=== PATIENT | male | born 1960 | race American Indian/Alaskan Native ===

== ENCOUNTER 2017-03-09 14:44 | Emergency (ER) | payer SELFPAY ==
[2017-03-09 14:59] VITALS: RESP 18
--- NOTE | 2017-03-09 16:57 | EDPHY ---
H & P Stated Complaint: Wants R foot checked ;Problems w/"nerves" in RLE x yrs Time Seen by Provider: 03/09/17 16:54 HPI/ROS: HPI: This is a 56-year-old male presents with Chief Complaint: Wants R foot checked ;Problems w/"nerves" in RLE x yrs Location: Right foot, right leg Quality: Nerve problems Duration: Since the for Tuesday of this month Signs and Symptoms: No bleeding, + radiation from right lumbar to right foot, no numbness, no weakness, no tingling, no incontinence, no decreased range of motion, + swelling, + pain Timing: Intermittent Severity: Rpvn-of-njnwsicz Context: Patient has a history of a ruptured Wilks cyst on the right and reports over the last month he has had intermittent pins and needles going down his legs originating in his right lower back. He reports that his right lower leg is slightly swollen and mildly red. He denies any injury/Trauma. No recent long distance travel. Patient is homeless and wears boots. No history of diabetes. No prior history of lower back problems or sciatica. Patient reports that is discomfort and that feels like pins and needles and denies pain to me. He is ambulatory without any deficits. Modifying Factors: None Comment: ROS: see HPI Constitutional: No fever, no chills, no weight loss Eyes: No blurred vision Respiratory: No shortness of breath, no cough Cardiovascular: No chest pain Gastrointestinal: No nausea, no vomiting no diarrhea Genitourinary: No dysuria Extremities: No myalgias Neurologic: No weakness, no numbness Skin: No rashes Hematologic: No bruising, no bleeding MEDICAL/SURGICAL/SOCIAL HISTORY: chronic R leg "nerve" problem, R Wilks's cyst. Does not take any regular medications. Surgical history: Denies Social history: Homeless CONSTITUTIONAL: Untidy malodorous adult white male, awake and alert, no obvious distress HEENT: Atraumatic and normocephalic. NECK: supple, no midline tenderness, flexion 45 degrees, extension 45 degrees, right and left lateral flexion 45 degrees. No meningismus. Cardiovascular: Normal S1/S2, regular rate, regular rhythm, without murmur rub or gallop. PULMONARY/CHEST: Symmetrical and nontender. no crepitus. Clear to auscultation bilaterally. Good air movement. No accessory muscle usage. ABDOMEN: Soft, nondistended, nontender, no ecchymosis. PELVIC: no pain with rocking; bilateral hips flexion 125 degrees, extension 30 degrees, with no pain internal rotation and no pain external rotation. BACK: No midline tenderness, no paraspinous spasm, deep tendon reflexes 2/2, no pain with straight leg raise, good range of motion of flexion, extension, bilateral rotation. EXTREMITIES: 2/2 pulses, right Ankle; Plantar flexion to 50, dorsiflexion to 20. Foot inversion to 35 degree. Anterior talofibular ligament. Calcaneofibular ligament, posterior talofibular ligament., posterior inferior tibiofibular ligament Achilles tendon intact. Right ankle and foot are mildly erythematous and swollen. No palpable cords. No varicose veins. no deformities , no clubbing, no cyanosis, no pitting edema. NEUROLOGICAL: no focal neuro deficits. GCS 15. Light touch sensation intact. SKIN: Warm and dry, no erythema. no rash. Good capillary refill. Source: Patient Exam Limitations: No limitations - Personal History Current Tetanus Diphtheria and Acellular Pertussis (TDAP): Unsure - Medical/Surgical History Hx Asthma: No Hx Chronic Respiratory Disease: No Hx Diabetes: No Hx Cardiac Disease: No Hx Renal Disease: No Hx Cirrhosis: No Hx Alcoholism: No Hx HIV/AIDS: No Hx Splenectomy or Spleen Trauma: No Other PMH: chronic R leg "nerve" problem. R Wilks's cyst. homeless - Social History Smoking Status: Former smoker Constitutional: Initial Vital Signs Temperature (C) 36.8 C 03/09/17 14:50 Heart Rate 91 03/09/17 14:50 Respiratory Rate 18 03/09/17 14:50 Blood Pressure 141/87 H 03/09/17 14:50 O2 Sat (%) 96 03/09/17 14:50 O2 Delivery Mode Room Air Allergies/Adverse Reactions: No Known Allergies Allergy (Verified 03/09/17 14:53) Home Medications: Medication Instructions Recorded NK [No Known Home Meds] 03/09/17 Medical Decision Making - Diagnostics Imaging Results: Imaging Impressions Extremity Venous Study 03/09/17 16:45 Impression: 1. There is no sonographic evidence of deep or superficial vein thrombosis in the right lower extremity. 2. Free fluid in the right calf, which could represent sequela from a prior ruptured Wilks's cyst. Findings were discussed with Gilda Fisher PA-C at 17:25, on 03/09/2017. Foot X-Ray 03/09/17 16:46 Impression: 1. Prominent atherosclerosis. 2. Acute/subacute fracture involving the base of the fifth proximal phalanx. 3. Indeterminate age fracture deformity base of the fifth middle phalanx. Lumbar Spine X-Ray 03/09/17 16:46 Impression: 1. Prominent atherosclerosis. 2. Acute/subacute fracture involving the base of the fifth proximal phalanx. 3. Indeterminate age fracture deformity base of the fifth middle phalanx. Procedures: Procedure: Splint placement. Fourth and 5th phalanx were deepak-taped and orthotic shoe was applied by the emergency room lens coating technician. After application of the splint I returned and re- examined the patient. The splint was adequately immobilizing the joint and distal to the splint the patient's circulation and sensation was intact. ED Course/Re-evaluation: Right lower extremity ultrasound, lumbar sacral x-rays, right foot x-rays ordered No signs of neurovascular compromise/tenting of skin/compartment syndrome/ extremities and joints examined above and below area of concern and are neurovascularly intact. Foot x-ray my read via PAC shows calcifications in the vessels and mild degenerative changes Acute/subacute fracture involving the base of the fifth proximal phalanx. Patient's 4th and 5th toes were deepak taped and placed in orthotic shoe. Lumbar sacral x-ray my read via PAC shows L5-S1 mild degenerative changes. Also noted is moderate stool burden. 1729: Called by radiologist Dr. Mcknight who advised that ultrasound shows no acute deep venous thrombosis does show some mild swelling consistent with ruptured Wilks cyst Differential Diagnosis: Leg swelling including but not limited to DVT, lumbar degenerative disc disease , sciatica. Departure - Departure Disposition: Home, Routine, Self-Care Clinical Impression: Wilks's cyst, ruptured Closed fracture of phalanx of right fifth toe Qualifiers: Encounter type: initial encounter Qualified Code(s): S92.501A - Displaced unspecified fracture of right lesser toe(s), initial encounter for closed fracture Condition: Good Instructions: Toe Fracture (ED) Additional Instructions: Keep your 4th and 5th toe deepak-taped and wear orthotic shoe for the next several weeks until your fracture is healed. Ultrasound today does not show deep venous thrombosis but does show some fluid from your ruptured Wilks cyst. Take ibuprofen 600 mg every 6-8 hours with food as needed for pain and inflammation. Apply ice for 30 minutes at a time; 2-3 times per day for the next 1-2 days. Follow up with Podiatry in 7-10 days at which time they will evaluate and recommend with you if conservative management versus surgery is indicated. Referrals: Antwan Hassan DPM [Doctor of Podiatric Medicine] - As per Instructions
[2017-03-09 18:10] VITALS: BP 123/89; PULSE 76; TEMP 98.4; O2SAT 97
== END 2017-03-09 18:18 | disposition home or self-care (01) ==
DX: S92.511A Displaced fracture of proximal phalanx of right lesser toe(s), initial encounter for closed fracture (principal); M66.0 Rupture of popliteal cyst; Z87.891 Personal history of nicotine dependence; X58.XXXA Exposure to other specified factors, initial encounter

== ENCOUNTER 2017-03-22 14:23 | Emergency (ER) | payer SELFPAY ==
--- NOTE | 2017-03-22 15:09 | EDPHY ---
HPI/HX/ROS/PE/MDM Narrative: CHIEF COMPLAINT: Alcohol intoxication HISTORY OF PRESENT ILLNESS: The patient is a 56 y/o male arriving via EMS for medical clearance due to intoxication. He says he has baseline foot numbness, but is not interested in further evaluation for this. He denies pain or any change in these symptoms. He says, "I would just like to leave." He denies any acute complaints or other medical history. No fever, chills, chest pain, shortness of breath, palpitations, vomiting, diarrhea, urinary complaints, headache, lightheadedness. REVIEW OF SYSTEMS: Aside from elements discussed in the HPI, a comprehensive 10-point review of systems was reviewed and is negative. PAST MEDICAL HISTORY: Chronic right foot numbness, right toe fractures, frostbite SOCIAL HISTORY: Homeless. Alcohol abuse. VITAL SIGNS: Reviewed by me GENERAL: Thin, slightly agitated but easily redirectable. HEENT: Atraumatic. Eyes: No icterus, no injection. Mouth: Moist mucous membranes. No erythema or lesions. Neck: supple with no adenopathy. LUNGS: Clear to auscultation bilaterally, no wheezes, rhonchi or rales. CARDIAC: Regular rate and rhythm, no rubs, murmurs or gallops. ABDOMEN: Soft, nontender, nondistended, bowel sounds normal. BACK: No CVA tenderness. EXTREMITIES: Right foot: Ecchymosis on tip of right second toe, some duskiness on ball of right foot, no lesions or evidence of infection, no swelling. Other extremities: No trauma. No edema. Range of motion is normal throughout. NEURO: Alert and oriented to person, [place]. Ambulatory. SKIN: Warm and dry, no rash. PSYCHIATRIC: Normal mentation, no agitation. Portions of this note were transcribed by a medical chief technician. I personally performed a history, physical exam, medical decision making, and confirmed accuracy of information the transcribed note. ED Course: This is a homeless 56 y/o male who presents with alcohol intoxication. He mentions chronic right foot numbness that may be related to prior frostbite injury and toe fractures. I do not find concerning findings on examination of his foot. He is able to walk unassisted and will be discharged to the [facility] in stable condition. Recommended follow up with PCP. Return precautions given. Patient is on [facility] hold via the police. MDM: Differential diagnoses for the patient's symptom complex was considered including but not limited to the alcohol intoxication, alcohol withdrawal, substance abuse, head injury, infection. General Time Seen by Provider: 03/22/17 15:04 Initial Vital Signs: Initial Vital Signs Temperature (C) 36.6 C 03/22/17 14:33 Heart Rate 82 03/22/17 14:33 Respiratory Rate 18 03/22/17 14:33 Blood Pressure 128/74 H 03/22/17 14:33 O2 Sat (%) 94 03/22/17 14:33 O2 Delivery Mode Room Air Allergies/Adverse Reactions: No Known Allergies Allergy (Verified 03/09/17 14:53) Home Medications: Medication Instructions Recorded NK [No Known Home Meds] 03/09/17 Departure - Departure Disposition: Home, Routine, Self-Care Clinical Impression: Alcoholic intoxication Qualifiers: Complication of substance-induced condition: uncomplicated Qualified Code(s): F10.920 - Alcohol use, unspecified with intoxication, uncomplicated Condition: Good Instructions: Alcohol Intoxication (ED) Additional Instructions: Medically clear for detox. Go directly to the [facility]. Follow up with [facility] to establish care this week. Referrals: [facility] [Outside] - As per Instructions [facility] [Outside] - As per Instructions Report Scribed for: Debbie Ospina Report Scribed by: Jacqueline Rodriguez Date of Report: 03/22/17 Time of Report: 15:07
[2017-03-22 15:33] VITALS: BP 120/78; PULSE 87; RESP 16; TEMP 97.5; O2SAT 96
== END 2017-03-22 15:33 | disposition home or self-care (01) ==
LOC: EDUNIT#
DX: F10.920 Alcohol use, unspecified with intoxication, uncomplicated (principal)

== ENCOUNTER 2018-01-18 11:22 | Inpatient (IN) | payer MEDICAID ==
--- NOTE | 2018-01-18 11:35 | EDPHY ---
H & P Stated Complaint: witnessed 2min sz, no hx per pt, bg 155 per ems Time Seen by Provider: 01/18/18 11:35 - Medical/Surgical History Hx Asthma: No Hx Chronic Respiratory Disease: No Hx Diabetes: No Hx Cardiac Disease: No Hx Renal Disease: No Hx Cirrhosis: No Hx Alcoholism: Yes Hx HIV/AIDS: No Hx Splenectomy or Spleen Trauma: No Other PMH: chronic R leg "nerve" problem. R Wilks's cyst. homeless. ETOH, ETOH seizures - Social History Smoking Status: Former smoker Constitutional: Initial Vital Signs Temperature (C) 35.9 C L 01/18/18 11:28 Heart Rate 101 H 01/18/18 11:28 Respiratory Rate 20 01/18/18 11:28 Blood Pressure 127/80 H 01/18/18 11:28 O2 Sat (%) 91 L 01/18/18 11:28 O2 Delivery Mode Nasal Cannula O2 (L/minute) 3 Allergies/Adverse Reactions: No Known Allergies Allergy (Verified 01/18/18 11:31) Home Medications: Medication Instructions Recorded NK [No Known Home Meds] 01/18/18 Medical Decision Making - Diagnostics Imaging Results: Imaging Impressions Head CT 01/18/18 12:10 Impression: 1. Acute parenchymal hemorrhage left posterior frontal lobe just above the sylvian fissure. 2. Encephalomalacia presumably related to previous trauma both frontal lobes and anterior right temporal lobe stable in appearance. 3. Nondepressed fracture left parietal bone to temporal bone. If symptoms worsen, additional imaging may be necessary. Findings discussed with Jarrett Gambino MD at 14:43 hour, 01/18/2018. Imaging: Discussed imaging studies w/ call or contact centre coach Radiologist ED Course/Re-evaluation: CHIEF COMPLAINT: Alcohol intoxication and seizure HISTORY OF PRESENT ILLNESS: The patient is a chronic alcoholic living on [address]. Patient drinks on a daily basis and obtains whatever alcohol is available. Patient was found by bystanders who called EMS system after witnessed brief seizure. Patient has had multiple ER visits over the last several years for the same complaint. Patient denies any injuries, denies a prior seizure history, denies any recent trauma. Patient denies co-ingestion. Patient denies suicidal or homicidal behavior. REVIEW OF SYSTEMS: A comprehensive 10 system review of systems is otherwise negative aside from elements mentioned in the history of present illness and medical decision making. PHYSICAL EXAM: General Appearance: Alert, well hydrated, appropriate, and non-toxic appearing. Dirty and unkept Head: Atraumatic without scalp tenderness or obvious injury Eyes: Pupils equal, round, reactive to light and accommodation, EOMI, no trauma , no injection. Ears: Clear bilaterally, no perforation, normal landmarks Nose: Atraumatic, no rhinorrhea, clear. Throat: There is no erythema or exudates, no lesions, normal tonsils, mucus membranes moist. Neck: Supple, 2+ carotid upstroke, nontender, no lymphadenopathy. Respiratory: No retractions, no distress, no wheezes, and no accessory muscle use. Lungs are clear to auscultation bilaterally. Cardiovascular: Regular rate and rhythm, no murmurs, rubs, or gallops. Bilateral carotid, radial, dorsalis pedis, and posterior tibial pulses intact. Good capillary refill all extremities. Gastrointestinal: Abdomen is soft, nontender, non-distended, no masses, no rebound, no guarding, no peritoneal signs. Musculoskeletal: Normal active ROM of all extremities, atraumatic. Neurological: Alert, appropriate, and interactive. The patient has normal DTRs and non-focal cranial nerves, motor, sensory, and cerebellar exam. Skin: No rashes, good turgor, no nodules on palpation. PAST MEDICAL HISTORY: Chronic alcoholic PAST SURGICAL HISTORY: None SOCIAL HISTORY: Homeless, not employed, not , polysubstance abuser DIAGNOSTICS/PROCEDURES/CRITICAL CARE TIME: I spent a total of 35 minutes of critical care time including but not limited to obtaining history, performing a physical exam, ordering interventions and the bedside monitoring of those interventions, collecting and interpreting tests and discussion with consultants but not including time spent performing procedures. Study: CT of the head without contrast Indication: Seizure and chronic alcoholic with no seizure history Results: CT scan of the head was obtained. The results of the study are parenchymal hemorrhage, skull fracture. The study was read by the radiologist, Dr. Lee. I viewed the images myself on the PACS system. DIFFERENTIAL DIAGNOSIS: The differential diagnosis for the patient's seizure included but was not limited to electrolyte abnormality, alcohol withdrawal, medication noncompliance, head injury, CAR MECH[employer]IC HELPER structural abnormality, and break through seizure. MEDICAL DECISION MAKING: I serially examined this patient since the patient's arrival here in the emergency department. The patient continues to become more and more sober with each examination. He also becomes more more alert and awake and less postictal. He did have a 2nd brief seizure here and the nurses gave 1 mg of Ativan. So a somewhat sleeping now. I did not witness this 2nd seizure. Reported possible fall yesterday. 14:[address] read shows small bleed. 14:37 Spoke with hospitalist service. Dr. Grier accepts admission for seizure , alcoholism, intracranial bleed. 14:[address] Lee, radiologist. CT head shows acute parenchymal hemorrhage left posterior frontal lobe, nondepressed fracture left parietal bone to temporal bone. 14:[address] Parkinson, neurosurgeon. Plan to administer 1000mg Keppra for repeat seizure prevention. Plan to admit to hospitalist service due to patient's alcoholism and alcohol withdrawal. His bleed likely occurred about 24 hours ago based on history. Trauma surgery and neurosurgery to consult. 14:57 Sang Beckman, Neurosurgery PA, at bedside. 15:30 Dr. Cuba, general surgeon, at bedside. Plan to admit as above. - Data Points Laboratory Results: Laboratory Results 01/18/18 11:37 01/18/18 11:37 01/18/18 01/18/18 01/18/18 11:42 11:37 11:37 WBC RBC Hgb POC Hgb 14.6 gm/dL gm/dL (13.7-17.5) Hct POC Hct 43 % % (40-51) MCV MCH MCHC RDW Plt Count MPV Neut % (Auto) Lymph % (Auto) Power % (Auto) Eos % (Auto) Baso % (Auto) Nucleat RBC Rel Count Absolute Neuts (auto) Absolute Lymphs (auto) Absolute Monos (auto) Absolute Eos (auto) Absolute Basos (auto) Absolute Nucleated RBC Immature Gran % Seg Neutrophils % Band Neutrophils % Lymphocytes % Monocytes % Eosinophils % Basophils % Metamyelocytes % Myelocytes % Promyelocytes % Blast Cells % Immature Gran # Absolute Seg Neuts Absolute Band Neuts Absolute Lymphocytes Absolute Monocytes Absolute Eosinophils Absolute Basophils Absolute Metamyelocyte Absolute Myelocytes Absolute Promyelocytes Absolute Plasma Cells Nucleated RBCs RBC/WBC/PLT Morphology Absolute Blast Cells Plasma Cells % Platelet Estimate PT 13.3 SEC SEC (12.0-15.0) INR 0.99 (0.83-1.16) APTT 28.1 SEC SEC (23.0-38.0) POC Sodium 140 mEq/L mEq/L (135-145) Sodium 140 mEq/L mEq/L (135-145) POC Potassium 3.5 mEq/L mEq/L (3.3-5.0) Potassium 3.9 mEq/L mEq/L (3.3-5.0) POC Chloride 104 mEq/L mEq/L (97-110) Chloride 102 mEq/L mEq/L (97-110) Carbon Dioxide 13 mEq/l L mEq/l (22-31) Anion Gap 25 mEq/L H mEq/L (8-16) POC BUN 9 mg/dL mg/dL (7-23) BUN 10 mg/dL mg/dL (7-23) Creatinine 1.1 mg/dL mg/dL (0.7-1.3) POC Creatinine 1.0 mg/dL mg/dL (0.7-1.3) Estimated GFR > 60 Glucose 135 mg/dL H mg/dL (70-100) POC Glucose 138 mg/dL H mg/dL (70-100) Calcium 9.4 mg/dL mg/dL (8.5-10.4) Ethyl Alcohol < 10 mg/dL mg/dL (0-10) 01/18/18 11:37 WBC 11.05 10^3/uL H 10^3/uL (3.80-9.50) RBC 4.01 10^6/uL L 10^6/uL (4.40-6.38) Hgb 13.3 g/dL L g/dL (13.7-17.5) POC Hgb Hct 40.3 % % (40.0-51.0) POC Hct MCV 100.5 fL H fL (81.5-99.8) MCH 33.2 pg pg (27.9-34.1) MCHC 33.0 g/dL g/dL (32.4-36.7) RDW 12.0 % % (11.5-15.2) Plt Count 247 10^3/uL 10^3/uL (150-400) MPV 10.4 fL fL (8.7-11.7) Neut % (Auto) Not Reported Lymph % (Auto) Not Reported Power % (Auto) Not Reported Eos % (Auto) Not Reported Baso % (Auto) Not Reported Nucleat RBC Rel Count Not Reported Absolute Neuts (auto) Not Reported Absolute Lymphs (auto) Not Reported Absolute Monos (auto) Not Reported Absolute Eos (auto) Not Reported Absolute Basos (auto) Not Reported Absolute Nucleated RBC Not Reported Immature Gran % Not Reported Seg Neutrophils % 93.0 % % Band Neutrophils % 0.0 % % Lymphocytes % 3.0 % % Monocytes % 3.0 % % Eosinophils % 0.0 % % Basophils % 0.0 % % Metamyelocytes % 1.0 % % Myelocytes % 0.0 % % Promyelocytes % 0.0 % % Blast Cells % 0.0 % % Immature Gran # Not Reported Absolute Seg Neuts 10.28 10^/uL H 10^/uL (1.70-6.50) Absolute Band Neuts 0.00 10^3/uL 10^3/uL (0.00-0.70) Absolute Lymphocytes 0.33 10^3/uL L 10^3/uL (1.00-3.00) Absolute Monocytes 0.33 10^3/uL 10^3/uL (0.30-0.80) Absolute Eosinophils 0.00 10^3/uL L 10^3/uL (0.03-0.40) Absolute Basophils 0.00 10^3/uL L 10^3/uL (0.02-0.10) Absolute Metamyelocyte 0.11 10^3/mL H 10^3/mL (0.00-0.00) Absolute Myelocytes 0.00 10^3/mL 10^3/mL (0.00-0.00) Absolute Promyelocytes 0.00 10^3/uL 10^3/uL (0.00-0.00) Absolute Plasma Cells 0.00 10^3/uL 10^3/uL (0.00-0.00) Nucleated RBCs 0 /100 WBC /100 WBC (0-0) RBC/WBC/PLT Morphology NORMAL (NORMAL) Absolute Blast Cells 0.00 10^3/uL 10^3/uL (0.00-0.00) Plasma Cells % 0.0 % % Platelet Estimate ADEQUATE (ADEQ) PT INR APTT POC Sodium Sodium POC Potassium Potassium POC Chloride Chloride Carbon Dioxide Anion Gap POC BUN BUN Creatinine POC Creatinine Estimated GFR Glucose POC Glucose Calcium Ethyl Alcohol Medications Given: Discontinued Medications Levetiracetam (Keppra (Premix)) 100 mls @ 400 mls/hr IV EDNOW ONE Stop: 01/18/18 14:57 Last Admin: 01/18/18 15:02 Dose: 100 mls Lorazepam (Ativan Injection) 2 mg IVP EDNOW ONE Stop: 01/18/18 11:40 Last Admin: 01/18/18 11:41 Dose: 2 mg Ondansetron HCl (Zofran) 4 mg IVP EDNOW ONE Stop: 01/18/18 12:56 Last Admin: 01/18/18 12:56 Dose: 4 mg Point of Care Test Results: Chemistry 01/18/18 11:42 POC Sodium 140 mEq/L mEq/L (135-145) POC Potassium 3.5 mEq/L mEq/L (3.3-5.0) POC Chloride 104 mEq/L mEq/L (97-110) POC BUN 9 mg/dL mg/dL (7-23) POC Creatinine 1.0 mg/dL mg/dL (0.7-1.3) POC Glucose 138 mg/dL H mg/dL (70-100) ISTAT H&H 01/18/18 11:42 POC Hgb 14.6 gm/dL gm/dL (13.7-17.5) POC Hct 43 % % (40-51) Departure - Departure Disposition: [facility] Inpatient Acute Clinical Impression: Seizure, Chronic alcoholism, Intracranial bleed Condition: Fair Report Scribed for: Jarrett Gambino Report Scribed by: Karla Cross Date of Report: 01/18/18 Time of Report: 15:50
[2018-01-18] MEDS ORDERED: LORazepam 2 MG/ML INJ ONE (11:39)
[2018-01-18] MEDS ORDERED: LORazepam 2 MG/ML INJ IVP ONE (11:39)
[2018-01-18 12:20] LABS: PLATELET COUNT 247 10^3/uL (150-400)
[2018-01-18] MEDS ORDERED: ONDANSETRON 4 MG/2 ML VIAL ONE (12:53)
[2018-01-18] MEDS ORDERED: ONDANSETRON 4 MG/2 ML VIAL IVP ONE (12:55)
[2018-01-18] MEDS ORDERED: levETIRAcetam 1000MG/NACL 100 ML IV ONE (14:43)
[2018-01-18 15:16] LABS: INR 0.99 (0.83-1.16); PROTIME(PATIENT) 13.3 SEC (12.0-15.0)
--- NOTE | 2018-01-18 15:21 | SOAPPROG ---
SOAP Progress Note Assessment/Plan: Consult done Seen by Neurosurgery at 1454 in ED room [address] shows skull fracture and IPH CT neck pending Repeat CT head to be done at 2000 Call with any questions or concerns 01/18/18 15:19 Objective: Vital Signs Temp Pulse Resp BP Pulse Ox 37.1 C 124 H 18 150/87 H 91 L 01/18/18 15:18 01/18/18 15:00 01/18/18 15:00 01/18/18 15:00 01/18/18 15:00 PT 13.3 SEC (12.0-15.0) 01/18/18 11:37 INR 0.99 (0.83-1.16) 01/18/18 11:37 ICD10 Worksheet Patient Problems: Problems Problem Status Onset CHI (closed head injury) Acute ICB (intracranial bleed) Acute Skull fracture Acute - ICD10 Problem Qualifiers (1) CHI (closed head injury) (2) Skull fracture (3) ICB (intracranial bleed)
--- NOTE | 2018-01-18 15:36 | PDCONSULT ---
Force Adjustment Supervisor Note: # [id number] Trauma Surgery Consult Dictated S MD Rosa Elena, FACS
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
[2018-01-18] MEDS ORDERED: FLUMAZENIL 0.5 MG/5 ML MDV IVP PRN (17:29)
[2018-01-18] MEDS ORDERED: LORazepam 1 MG TAB PO PRN (17:29)
[2018-01-18] MEDS ORDERED: LORazepam 2 MG/ML INJ IVP PRN (17:29)
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
[2018-01-18] MEDS: NS 1,000 ML IV SCH (17:52)
[2018-01-18] MEDS: THIAMINE HCL 500 MG in NS 100 ML IV SCH (18:04)
[2018-01-18] MEDS: ACETAMINOPHEN 325 MG TAB PO PRN (18:26)
[2018-01-18] MEDS ORDERED: levETIRAcetam 750 MG in NS 100 ML IV SCH (21:00)
[2018-01-19] MEDS: ACETAMINOPHEN 325 MG TAB PO PRN ×3 (01:52→17:30)
[2018-01-19] MEDS: THIAMINE HCL 500 MG in NS 100 ML IV SCH (08:01)
[2018-01-19] MEDS: levETIRAcetam 500 MG TAB PO SCH ×2 (08:01→20:44)
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
--- NOTE | 2018-01-19 13:38 | HOSPPROG ---
Hospitalist Progress Note Assessment/Plan: 57yo homeless M with history of etoh abuse presented after having generalized convulsive seizure. Found to have parenchymal hemorrhage and skull fracture on CT. Plan: #Left intraparenchymal hemorrhage: [id number] with some vasogenic edema but no midline shift. Repeat head CT unchanged. - neurosurgery following - cont Q2H neuro checks - No anticoagulants or antiplatelets #Seizure: Likely precipitated by above and less likely etoh withdrawal. - Continue keppra - Appreciate neurology consult, plan for outpt f/u and cont keppra at discharge #Non-displaced skull fracture: Noted on imaging. CT c-spine without fracture. #EtOH abuse: Drinks about 12 beers/day. No e/o withdrawal but high risk. Suspect baseline cognitive deficit related to chronic etoh use. - CIWA protocol - Thiamine #Metabolic acidosis: Likely hypoperfusion from seizure, improved #VINNY - Cr 1.1 -->2.8 overnight despite IVF's, FeNa 1.8%. UA with 2+ protein - renal u/s without e/o hydro - send AM urine microalb:protein ratio - renal consult if worsening, trend for now #Mildly displaced left 4-6th rib fractures: Old. #Macrocytic anemia: Likely marrow suppression from etoh use. Diet: regular VTE ppx: defer pharm with bleed, SCD's Code: full Dispo: cont inpt, transfer to med/surg, ok with neurosurg Subjective: Pt awake, alert. Denies headache, vision changes, nausea or vomiting. No fevers. No cough, CP or SOB. No significant w/d symptoms. Objective: Vital Signs Temp Pulse Resp BP Pulse Ox 37.0 C 85 16 117/68 97 01/19/18 08:00 01/19/18 12:00 01/19/18 12:00 01/19/18 12:00 01/19/18 12:00 Laboratory Results 01/19/18 04:45 01/19/18 04:45 01/18/18 01/19/18 01/20/18 05:59 05:59 05:59 Intake Total 1520 Balance 1520 PT 13.3 SEC (12.0-15.0) 01/18/18 11:37 INR 0.99 (0.83-1.16) 01/18/18 11:37 - Physical Exam Constitutional: no apparent distress Eyes: PERRL Ears, Nose, Mouth, Throat: moist mucous membranes Cardiovascular: regular rate and rhythym Respiratory: no respiratory distress, clear to auscultation Gastrointestinal: normoactive bowel sounds, soft, non-tender abdomen Skin: warm Musculoskeletal: full muscle strength Neurologic: AAOx3 Psychiatric: poor insight, poor memory ICD10 Worksheet Patient Problems: Problems Problem Status Onset CHI (closed head injury) Acute Chronic alcoholism Acute ICB (intracranial bleed) Acute Intracranial bleed Acute Seizure Acute Skull fracture Acute
[2018-01-19] MEDS ORDERED: PNEUMOCOCCAL 0.5ML VACCINE VIAL IM ONE (17:12)
--- NOTE | 2018-01-19 19:28 | TRAUMAPN ---
Trauma Progress Note Assessment/Plan: s/p seizure and fall with IPH and skull fracture alcohol abuse Old rib fractures Tertiary survey performed and no injuries noted S: Sitting up in bed, reading a book Objective: Vital Signs Temp Pulse Resp BP Pulse Ox 36.6 C 84 16 125/82 H 98 01/19/18 17:12 01/19/18 17:12 01/19/18 17:12 01/19/18 17:12 01/19/18 17:12 Laboratory Results 01/19/18 04:45 01/19/18 04:45 01/18/18 01/19/18 01/20/18 05:59 05:59 05:59 Intake Total 1520 1100 Output Total 200 Balance 1520 900 PT 13.3 SEC (12.0-15.0) 01/18/18 11:37 INR 0.99 (0.83-1.16) 01/18/18 11:37 Physical Exam - Physical Exam General Appearance: WD/WN, alert, no apparent distress EENT: PERRL/EOMI, normal ENT inspection, No scleral icterus (R), No scleral icterus (L), No hearing deficit Neck: full range of motion Respiratory: lungs clear, normal breath sounds Cardiac/Chest: regular rate, rhythm, No edema Abdomen: normal bowel sounds, non-tender, soft Skin: warm/dry Extremities: normal range of motion Neuro/Psych: no motor/sensory deficits
--- NOTE | 2018-01-20 07:48 | NEUROPROG ---
Assessment: Total unit time 15 min. Patient has experienced apparent seizure activity in the setting of intraparenchymal hemorrhage on the left and is neurologically stable. It isn't entirely clear if he has actually had document seizures in the past and he denies awareness of any seizures. In any case, I would recommend continued use of the Keppra as an outpatient once he is discharged and we can certainly see him in follow-up if he is able to come to our clinic. Subjective: The patient reports having soreness in his hips and thighs but denies any significant headache. He says he does not feel confused. Objective: Vital Signs Temp Pulse Resp BP Pulse Ox 37.0 C 88 16 131/71 H 93 01/20/18 03:35 01/20/18 03:35 01/20/18 03:35 01/20/18 03:35 01/20/18 03:35 Laboratory Results 01/20/18 04:14 01/20/18 04:14 01/19/18 01/20/18 01/21/18 05:59 05:59 05:59 Intake Total 1520 2050 Output Total 200 Balance 1520 1850 PT 13.3 SEC (12.0-15.0) 01/18/18 11:37 INR 0.99 (0.83-1.16) 01/18/18 11:37 He is awake and alert and oriented and able to follow commands without any focal deficits. Allergies/Adverse Reactions: No Known Allergies Allergy (Verified 01/18/18 11:31)
--- NOTE | 2018-01-20 07:57 | NEUSURGPN ---
Assessment/Plan: Assessment: 57 yo male that had a seizure and ?fall with a stable ICB on follow up CT and skull fracture noted as well Plan: -seizure with ?fall: CT of the head is stable, CT of the C spine is neg -no further CTs needed -neuro stable - c/o mild headache only. -AAO x 3, GCS 15 -continue with Keppra per neurology -PT/OT/ST - PT recs SNF, OT recs home. Will need CM to work on dispo -D/w Dr Gongora -call NS with any neuro changes, questions, or concerns Subjective: Pt resting in bed, states he just fell asleep. C/o mild headache Objective: Awake and alert - oriented to month but not date, stated year is 2012 rather than 2017 Speech fluent and appropriate CN II-XII grossly intact Motor 5/5 BUE/BLE +LT Urinary Catheter in Place: No - Physician Discussed Patient with : [facility] Physical Exam - Vitals, I&O, Labs I and O 01/19/18 01/20/18 01/21/18 05:59 05:59 05:59 Intake Total 1520 2050 Output Total 200 Balance 1520 1850 Weight 65.77 kg Intake: Oral (ml) 1400 1650 IV Intake (ml) 400 IV Infused (ml) 120 Output: Urine (ml) 200 Toilet 200 Other: Intake Quantity Yes Sufficient Number of Voids Toilet 1 1 1 Number of Stools Toilet 1 2 Vital Signs Temp Pulse Resp BP Pulse Ox 37.0 C 88 16 131/71 H 93 01/20/18 03:35 01/20/18 03:35 01/20/18 03:35 01/20/18 03:35 01/20/18 03:35 Laboratory Results 01/20/18 04:14 01/20/18 04:14 ICD10 Worksheet Patient Problems: Problems Problem Status Onset CHI (closed head injury) Acute Chronic alcoholism Acute ICB (intracranial bleed) Acute Intracranial bleed Acute Seizure Acute Skull fracture Acute
--- NOTE | 2018-01-20 10:18 | PDCONSULT ---
Supply Chain Engineer Note: Assessment/Plan: VINNY: Pt with sudden rise in Cr from 1.1 to 4.2 in two days, has proteinuria on UA as well as hematuria but only 1-3 RBCs, FeNa 1.8%, renal US unrevealing and no evidence of obstruction. His lytes and volume status are fine at this time. Concerning for RPGN, although could have rhabdomyolysis. Rarely Keppra can cause VINNY (interstitial nephritis), although usually I would expect such a reaction to take longer than a day to show up. - No emergent need for HD at this time, although will continue to monitor for HD needs. - Will hold Keppra for now. - Will increase NS. - Will send a full serological workup. - Will repeat UA along with urine PCR. - Will check CK. - Will place on low K diet for now. - Would recommend bladder scan as well as accurate I/Os. - Avoid hypotension and nephrotoxins. - Will continue to monitor. Metabolic acidosis: has improved since presentation, will continue to monitor for now. Thank you for the interesting consult. Nephrology will continue to follow, please call if you have any additional questions or concerns. H & P Stated Complaint: witnessed 2min sz, no hx per pt, bg 155 per ems Time Seen by Provider: 01/18/18 11:35 HPI/ROS: HPI: Mr. Madison is a 57 yo M with h/o alcohol abuse and homelessness who presented after being found having a witness convulsive seizure for two minutes , no h/of seizures per pt. He was found to have a L skull fracture and L sided acute parenchymal hemorrhage. He was loaded with Keppra and given Ativan, has also been getting NS. His Cr was 1.1 on presentation, went up to 2.8 yesterday and today is 4.2. He had a renal US done yesterday that was unremarkable. Pt states that he has been urinating normally, normal volume, no hematuria or dysuria, notes that it has not been regularly measured. He denies any rash or synovitis. He has no swelling in his legs or dyspnea. He has never had renal disease before. His UA showed proteinuria or hematuria, although only 1-3 RBCs. He denies any NSAID use, was not taking any medications prior to hospitalization. He admits to large alcohol use and occasional marijuana use, no other drug use. ROS: positive per HPI, rest of 10-point ROS negative - Medical/Surgical History Hx Asthma: No Hx Chronic Respiratory Disease: No Hx Diabetes: No Hx Cardiac Disease: No Hx Renal Disease: No Hx Cirrhosis: No Hx Alcoholism: Yes Hx HIV/AIDS: No Hx Splenectomy or Spleen Trauma: No Other PMH: chronic R leg "nerve" problem. R Wilks's cyst. homeless. ETOH, ETOH seizures - Family History Significant Family History: No pertinent family hx - Social History Smoking Status: Former smoker Alcohol Use: Heavy Drug Use: Marijuana - Physical Exam Exam: General: alert and oriented, no acute distress Eyes: EOMI, PERRL OP: Clear, MMM Neck: supple, no thyromegaly CV: RRR, no edema BLE Resp: CTA bilat, nonlabored respirations on RA Abd: Soft, NT/ND Neuro: CN II-XII grossly intact, no asterixis Psych: cooperative, appropriate mood and affect Skin: C/D/I, no rash Constitutional: Initial Vital Signs Temperature (C) 35.9 C L 01/18/18 11:28 Heart Rate 101 H 01/18/18 11:28 Respiratory Rate 20 01/18/18 11:28 Blood Pressure 127/80 H 01/18/18 11:28 O2 Sat (%) 91 L 01/18/18 11:28 O2 Delivery Mode Nasal Cannula O2 (L/minute) 3 Allergies/Adverse Reactions: No Known Allergies Allergy (Verified 01/18/18 11:31) Home Medications: Medication Instructions Recorded NK [No Known Home Meds] 01/18/18 Lab and Imaging 01/20/18 04:14 01/20/18 04:14 WBC 8.97 10^3/uL (3.80-9.50) 01/20/18 04:14 RBC 3.93 10^6/uL (4.40-6.38) L 01/20/18 04:14 Hgb 12.9 g/dL (13.7-17.5) L 01/20/18 04:14 POC Hgb 14.6 gm/dL (13.7-17.5) 01/18/18 11:42 Hct 38.5 % (40.0-51.0) L 01/20/18 04:14 POC Hct 43 % (40-51) 01/18/18 11:42 MCV 98.0 fL (81.5-99.8) 01/20/18 04:14 MCH 32.8 pg (27.9-34.1) 01/20/18 04:14 MCHC 33.5 g/dL (32.4-36.7) 01/20/18 04:14 RDW 11.6 % (11.5-15.2) 01/20/18 04:14 Plt Count 182 10^3/uL (150-400) 01/20/18 04:14 MPV 10.4 fL (8.7-11.7) 01/18/18 11:37 Neut % (Auto) Not Reported 01/18/18 11:37 Lymph % (Auto) Not Reported 01/18/18 11:37 [place] % (Auto) Not Reported 01/18/18 11:37 Eos % (Auto) Not Reported 01/18/18 11:37 Baso % (Auto) Not Reported 01/18/18 11:37 Nucleat RBC Rel Count Not Reported 01/18/18 11:37 Absolute Neuts (auto) Not Reported 01/18/18 11:37 Absolute Lymphs (auto) Not Reported 01/18/18 11:37 Absolute Monos (auto) Not Reported 01/18/18 11:37 Absolute Eos (auto) Not Reported 01/18/18 11:37 Absolute Basos (auto) Not Reported 01/18/18 11:37 Absolute Nucleated RBC Not Reported 01/18/18 11:37 Immature Gran % Not Reported 01/18/18 11:37 Seg Neutrophils % 93.0 % 01/18/18 11:37 Band Neutrophils % 0.0 % 01/18/18 11:37 Lymphocytes % 3.0 % 01/18/18 11:37 Monocytes % 3.0 % 01/18/18 11:37 Eosinophils % 0.0 % 01/18/18 11:37 Basophils % 0.0 % 01/18/18 11:37 Metamyelocytes % 1.0 % 01/18/18 11:37 Myelocytes % 0.0 % 01/18/18 11:37 Promyelocytes % 0.0 % 01/18/18 11:37 Blast Cells % 0.0 % 01/18/18 11:37 Immature Gran # Not Reported 01/18/18 11:37 Absolute Seg Neuts 10.28 10^/uL (1.70-6.50) H 01/18/18 11:37 Absolute Band Neuts 0.00 10^3/uL (0.00-0.70) 01/18/18 11:37 Absolute Lymphocytes 0.33 10^3/uL (1.00-3.00) L 01/18/18 11:37 Absolute Monocytes 0.33 10^3/uL (0.30-0.80) 01/18/18 11:37 Absolute Eosinophils 0.00 10^3/uL (0.03-0.40) L 01/18/18 11:37 Absolute Basophils 0.00 10^3/uL (0.02-0.10) L 01/18/18 11:37 Absolute Metamyelocyte 0.11 10^3/mL (0.00-0.00) H 01/18/18 11:37 Absolute Myelocytes 0.00 10^3/mL (0.00-0.00) 01/18/18 11:37 Absolute Promyelocytes 0.00 10^3/uL (0.00-0.00) 01/18/18 11:37 Absolute Plasma Cells 0.00 10^3/uL (0.00-0.00) 01/18/18 11:37 Nucleated RBCs 0 /100 WBC (0-0) 01/18/18 11:37 RBC/WBC/PLT Morphology NORMAL (NORMAL) 01/18/18 11:37 Absolute Blast Cells 0.00 10^3/uL (0.00-0.00) 01/18/18 11:37 Plasma Cells % 0.0 % 01/18/18 11:37 Platelet Estimate ADEQUATE (ADEQ) 01/18/18 11:37 PT 13.3 SEC (12.0-15.0) 01/18/18 11:37 INR 0.99 (0.83-1.16) 01/18/18 11:37 APTT 28.1 SEC (23.0-38.0) 01/18/18 11:37 VBG Lactic Acid 1.1 mmol/L (0.7-2.1) 01/18/18 17:30 POC Sodium 140 mEq/L (135-145) 01/18/18 11:42 Sodium 135 mEq/L (135-145) 01/20/18 04:14 POC Potassium 3.5 mEq/L (3.3-5.0) 01/18/18 11:42 Potassium 4.5 mEq/L (3.3-5.0) 01/20/18 04:14 POC Chloride 104 mEq/L (97-110) 01/18/18 11:42 Chloride 100 mEq/L (97-110) 01/20/18 04:14 Carbon Dioxide 21 mEq/l (22-31) L 01/20/18 04:14 Anion Gap 14 mEq/L (8-16) 01/20/18 04:14 POC BUN 9 mg/dL (7-23) 01/18/18 11:42 BUN 40 mg/dL (7-23) H 01/20/18 04:14 Creatinine 4.2 mg/dL (0.7-1.3) H 01/20/18 04:14 POC Creatinine 1.0 mg/dL (0.7-1.3) 01/18/18 11:42 Estimated GFR 15 01/20/18 04:14 Glucose 78 mg/dL (70-100) 01/20/18 04:14 POC Glucose 138 mg/dL (70-100) H 01/18/18 11:42 Calcium 9.0 mg/dL (8.5-10.4) 01/20/18 04:14 Phosphorus 5.7 mg/dL (2.5-4.5) H 01/20/18 04:14 Albumin 3.8 g/dL (3.5-5.0) 01/20/18 04:14 Urine Color YELLOW 01/19/18 08:15 Urine Appearance HAZY 01/19/18 08:15 Urine pH 5.0 (5.0-7.5) 01/19/18 08:15 Ur Specific [place] 1.008 (1.002-1.030) 01/19/18 08:15 Urine Protein 2+ (NEGATIVE) H 01/19/18 08:15 Urine Ketones NEGATIVE (NEGATIVE) 01/19/18 08:15 Urine Blood 3+ (NEGATIVE) H 01/19/18 08:15 Urine Nitrate NEGATIVE (NEGATIVE) 01/19/18 08:15 Urine Bilirubin NEGATIVE (NEGATIVE) 01/19/18 08:15 Urine Urobilinogen NEGATIVE EU (0.2-1.0) 01/19/18 08:15 Ur Leukocyte Esterase NEGATIVE (NEGATIVE) 01/19/18 08:15 Urine RBC 1-3 /hpf (0-3) 01/19/18 08:15 Urine WBC 1-3 /hpf (0-3) 01/19/18 08:15 Ur Epithelial Cells TRACE /lpf (NONE-1+) 01/19/18 08:15 Urine Bacteria TRACE /hpf (NONE SEEN) H 01/19/18 08:15 Urine Mucus TRACE /lpf (NONE-1+) 01/19/18 08:15 Ur Random Creatinine 53.5 mg/dL 01/19/18 08:15 Ur Random Sodium 48 mEq/L (30-90) 01/19/18 08:15 Urine Glucose NEGATIVE (NEGATIVE) 01/19/18 08:15 Ethyl Alcohol < 10 mg/dL (0-10) 01/18/18 11:37
[2018-01-20] MEDS: THIAMINE HCL 500 MG in NS 100 ML IV SCH (10:27)
--- NOTE | 2018-01-20 10:27 | ASMTCAGE ---
CAGE Do you feel you ought to Answers: No cut down on your drinking or drug use? Do people annoy you by Answers: No criticizing your drinking or drug use? Do you feel guilty about Answers: No your drinking or drug use? 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 Additional Comments Pt may be interested in cutting down on his alcohol use if he has to for the health of his kidneys which there are concerns over. Date Signed: 01/20/2018 10:26 AM Electronically Signed By:Annamaria Daly
[2018-01-20] MEDS: levETIRAcetam 500 MG TAB PO SCH ×2 (10:32→21:23)
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
[2018-01-20 15:54] LABS: CREATINE KINASE 8303 IU/L (0-224)
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
[2018-01-20] MEDS: NS 1,000 ML IV SCH ×4 (18:02→23:41)
[2018-01-21 04:55] LABS: PLATELET COUNT 189 10^3/uL (150-400)
[2018-01-21 05:59] LABS: CREATINE KINASE 9190 IU/L (0-224)
[2018-01-21] MEDS: levETIRAcetam 500 MG TAB PO SCH ×2 (09:26→20:46)
[2018-01-21] MEDS: THIAMINE HCL 100 MG TAB PO SCH (09:26)
[2018-01-21] MEDS: NS 1,000 ML IV SCH ×5 (09:26→20:48)
--- NOTE | 2018-01-21 13:30 | SOAPPROG ---
SOAP Progress Note Assessment/Plan: Assessment/Plan: VINNY: pt with suden rise in Cr from 1.1 to 4.2 in two days, with 0.5g proteinuria , noted to have hematuria but only 1-3 RBCs on UA, FeNa 1.8%, renal US unrevealing and no signs of obstruction. Pt is nonoliguric with great UOP, lytes ok and volume status ok. Noted to have elevated CK at 8K, today up to 9K , likely has ATN due to rhabdomyolysis. Cr is down to 3.3 today with IVFs. - No need for HD. - Will continue NS @ 200ml/hr. - Serological workup pending. - Would continue to monitor CK daily. - Avoid hypotension and nephrotoxins. - Strict I/Os. - Will continue to monitor. Metabolic acidosis: in setting of VINNY, will continue to monitor for now. Subjective: No acute events overnight. Pt is having great UOP, over 3.1L yesterday. He has no swelling in his legs, has no other new complaints today. Objective: Vital Signs Temp Pulse Resp BP Pulse Ox 36.6 C 84 16 154/89 H 92 01/21/18 12:00 01/21/18 12:00 01/21/18 12:00 01/21/18 12:00 01/21/18 12:00 Laboratory Results 01/21/18 04:21 01/21/18 04:21 01/20/18 01/21/18 01/22/18 05:59 05:59 05:59 Intake Total 2050 3650 850 Output Total 200 3125 2180 Balance 1850 525 -1330 PT 13.3 SEC (12.0-15.0) 01/18/18 11:37 INR 0.99 (0.83-1.16) 01/18/18 11:37 General: alert and oriented, no acute distress Eyes; EOMI, PERRL OP: Clear CV: RRR Resp: nonlabored respirations on RA Abd: Soft, NT/ND Ext: no edema Neuro: CN II-XII grossly intact, no asterixis Psych: cooperative, appropriate mood and affect ICD10 Worksheet Patient Problems: Problems Problem Status Onset CHI (closed head injury) Acute Chronic alcoholism Acute ICB (intracranial bleed) Acute Intracranial bleed Acute Seizure Acute Skull fracture Acute
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
[2018-01-22 06:24] LABS: CREATINE KINASE 6591 IU/L (0-224)
[2018-01-22] MEDS: THIAMINE HCL 100 MG TAB PO SCH (09:07)
[2018-01-22] MEDS: levETIRAcetam 500 MG TAB PO SCH ×2 (09:07→20:41)
[2018-01-22] MEDS: NS 1,000 ML IV SCH ×2 (10:01→16:40)
--- NOTE | 2018-01-22 13:34 | SOAPPROG ---
SOAP Progress Note Assessment/Plan: Assessment/Plan: VINNY: pt with suden rise in Cr from 1.1 to 4.2 in two days, with 0.5g proteinuria , noted to have hematuria but only 1-3 RBCs on UA, FeNa 1.8%, renal US unrevealing and no signs of obstruction. Pt is nonoliguric with great UOP, lytes ok and volume status ok. Noted to have elevated CK at 8K, today up to 9K , likely has ATN due to rhabdomyolysis. Cr is down to 1.9 today with IVFs. - No need for HD. - Will continue NS @ 100ml/hr, encouraged good oral fluid intake. - Serological workup pending. - Would continue to monitor CK daily. - Avoid hypotension and nephrotoxins. - Strict I/Os. - Will continue to monitor. Metabolic acidosis: in setting of VINNY, will continue to monitor for now. Subjective: No acute events overnight Pt having large UOP, no swelling in legs. He is breathing comfortably, denies any pain today. He is working with PT. Objective: Vital Signs Temp Pulse Resp BP Pulse Ox 36.7 C 80 16 139/76 H 97 01/22/18 12:00 01/22/18 12:00 01/22/18 12:00 01/22/18 12:00 01/22/18 12:00 Laboratory Results 01/21/18 04:21 01/22/18 04:19 01/21/18 01/22/18 01/23/18 05:59 05:59 05:59 Intake Total 3650 7550 Output Total 3125 6730 1400 Balance 525 820 -1400 PT 13.3 SEC (12.0-15.0) 01/18/18 11:37 INR 0.99 (0.83-1.16) 01/18/18 11:37 General: alert and oriented, no acute distress Eyes: EOMI, PERRL OP: Clear CV: RRR Resp: nonlabored respirations on RA, CTAB Abd: Soft, NT/ND Ext: no edema BLE Neuro; CN II-XII grossly intact, no asterixis Psych; Cooperative ICD10 Worksheet Patient Problems: Problems Problem Status Onset CHI (closed head injury) Acute Chronic alcoholism Acute ICB (intracranial bleed) Acute Intracranial bleed Acute Seizure Acute Skull fracture Acute
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
[2018-01-23] MEDS: NS 1,000 ML IV SCH (01:12)
[2018-01-23 05:14] LABS: CREATINE KINASE 2240 IU/L (0-224)
[2018-01-23 09:09] VITALS: BP 106/64
[2018-01-23] MEDS: levETIRAcetam 500 MG TAB PO SCH (09:21)
[2018-01-23] MEDS: THIAMINE HCL 100 MG TAB PO SCH (09:21)
--- NOTE | 2018-01-23 10:39 | ASMTDCNOTE ---
Case Management Discharge Discharge Order Complete? Answers: Yes Patient to Obtain Answers: Independently Medications Transportation Arranged Answers: Bus Tokens Discharge Comments Notes: Patient discharged to streets, per his choice. Bus pass provided. RX sent to [facility]. Date Signed: 01/23/2018 10:38 AM Electronically Signed By:Reyna Mojica RN
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
[2018-01-24 20:39] LABS: HEPATITIS B CORE AB IGM NEGATIVE (NEGATIVE); HEPATITIS B SURFACE ANTIGEN NEGATIVE (NEGATIVE)
[2018-01-24 20:51] LABS: HEPATITIS C ANTIBODY TOTAL NEGATIVE (NEGATIVE); HIV TYPE 1 AND 2 NEGATIVE (NEGATIVE)
== END 2018-01-23 14:15 | disposition home or self-care (01) | DRG 55 ==
LOC: EDUNIT# → F2N 16:07 → F3N 01-19 17:08
PROVIDERS: ADMIT Internal Medicine; ATTEND Internal Medicine
DX: S06.360A Traumatic hemorrhage of cerebrum, unspecified, without loss of consciousness, initial encounter (principal); S02.0XXA Fracture of vault of skull, initial encounter for closed fracture; W19.XXXA Unspecified fall, initial encounter; N17.0 Acute kidney failure with tubular necrosis; R56.9 Unspecified convulsions; F10.20 Alcohol dependence, uncomplicated; M62.82 Rhabdomyolysis; E87.2 Acidosis; M79.2 Neuralgia and neuritis, unspecified; S22.42XD Multiple fractures of ribs, left side, subsequent encounter for fracture with routine healing; F17.210 Nicotine dependence, cigarettes, uncomplicated; Z59.0 Homelessness; Z23 Encounter for immunization
CPT/HCPCS: 82435-PO; 82565-PO; 82947-PO; 83516-90; 83520-90; 84132-PO; 84295-PO; 84520-PO; 85014-PO; 86334-90; 86705-90; 92507-GN; 92523-GN; 96374; 97112-GP; 97116-GP; 97161-GP; 97166-GO; 97530-GP; 97535-GO; G0008; G0009; G0472; G0480; J1953; J2060; J2405; J3411

== ENCOUNTER 2018-02-04 13:03 | Emergency (ER) | payer MEDICAID ==
[2018-02-04] MEDS ORDERED: diphenhydrAMINE 25 MG CAP PO ONE (13:28)
[2018-02-04] MEDS ORDERED: predniSONE 20 MG TAB PO ONE (13:28)
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
[2018-02-04] MEDS ORDERED: CETIRIZINE 10 MG TAB PO ONE (13:43)
[2018-02-04 14:00] VITALS: BP 128/74
== END 2018-02-04 14:01 | disposition home or self-care (01) ==
LOC: EDUNIT#
DX: T63.441A Toxic effect of venom of bees, accidental (unintentional), initial encounter (principal); Z91.030 Bee allergy status
CPT/HCPCS: J7512

== ENCOUNTER 2018-05-29 08:19 | Inpatient (IN) | payer MEDICAID ==
[2018-05-29 08:48] LABS: PLATELET COUNT 221 10^3/uL (150-400)
[2018-05-29] MEDS ORDERED: LORazepam 2 MG/ML INJ ONE (08:54)
[2018-05-29] MEDS ORDERED: levETIRAcetam 500MG/NACL 100 ML IV ONE (08:59)
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
[2018-05-29] MEDS ORDERED: LORazepam 2 MG/ML INJ IVP ONE (09:06)
[2018-05-29] MEDS ORDERED: IOHEXOL 300 mgI/ML (OMNIPAQUE) 150 ML BTL IV ONE (10:46)
--- NOTE | 2018-05-29 12:34 | GCON ---
[f rep st] CONSULTATION DATE OF CONSULTATION: 05/29/2018 TIME OF CONSULTATION: 1030 in the emergency room. HOSPITAL COURSE/HISTORY/MAJOR MEDICAL FINDINGS: The patient is a 57-year-old gentleman who was found down by police, EMS and brought into the emergency room. He does have a history of seizure disorder. There was some question about him having head trauma. He underwent a head CT, which demonstrated an epidural hematoma and Neurosurgery was consulted. He is also complaining of some right shoulder and right biceps pain, and with weakness. He states that this started spontaneously last night. He does not recall any recent falls or head trauma. He denies any neck pain. He denies any numbness, tingling, pain, or weakness anywhere else in his body. The patient does have a history known to [facility] for alcohol abuse, as well as a recent intraparenchymal hemorrhage approximately 5 months ago. PAST MEDICAL HISTORY: Per the patient, he has a seizure disorder. He is currently not taking any medications. He has had a history of a right Wilks cyst and chronic pain going down his right leg. SURGICAL HISTORY: Patient denies any past surgical history. SOCIAL HISTORY: The patient is homeless. He does have a history of EtOH abuse. He is a former smoker. He drinks several 6-packs a day. FAMILY HISTORY: Patient states that he was adopted. HOME MEDICATIONS: None. ALLERGIES: No known drug allergies. PHYSICAL EXAM: VITAL SIGNS: Temperature 37.2, heart rate is 88, respiratory rate is 20, BP is 162/90, and he is 96% on room air. GENERAL: The patient is in no acute distress. He is alert and oriented x3, answers all questions appropriately, and his affect is appropriate for the given situation. NEUROLOGIC: Cranial nerves 2-12 are grossly intact. EOMI and PERRLA. 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 NEURO: In his left deltoid and biceps, he is 5/5 in his right deltoid and biceps. He is a 3+/5. He has a 5/5 in his lower extremities, including his iliopsoas, hamstrings, quadriceps, plantar flexion, dorsiflexion, EHL, and those are equal. Sensation is intact in bilateral upper and bilateral lower extremities. Negative clonus. Negative Babinski bilaterally. Negative Garcia's. He does have 3+ brachioradialis reflex on the right. DIAGNOSTIC REVIEW: CT scan demonstrated acute left frontal epidural hematoma with skull fracture and acute left frontal intraparenchymal hemorrhage, cerebral vascular arthrosclerosis. There is no midline shift or herniation, and there is atrophy of old bilateral frontal and right temporal cortical encephalomalacia. DISCUSSION AND DECISION-MAKING: The patient is a 57-year-old gentleman with a known seizure disorder who was brought into the emergency room and a head CT demonstrated an acute left frontal epidural hematoma with skull fracture. The patient is currently neurologically intact other than some deltoid and biceps weakness. He is denying any neck pain, but given his unknown mechanism, the patient has been placed in a cervical collar. There has been a cervical CT that has been ordered to evaluate his neck. The patient was also given some Keppra in the emergency room given his seizures. At this point in time given is epidural hematoma, we will go ahead and we will repeat his head CT in approximately 4 hours to ensure no expansion of the epidural hematoma. The patient should be admitted to the ICU for q.1 hour neurologic checks and monitor closely. This was discussed in detail with the patient the importance of his staying given the risk of that enlarging head bleed. The patient was also seen by Dr. Hong and myself in conjunction in the emergency room. We will continue to follow up with the results of his cervical scan. If the patient develops any new or worsening symptoms or any change in neurologic or motor exam, please notify Neurosurgery immediately. /[id number]/MODL MTDD
[2018-05-29] MEDS ORDERED: hydrALAZINE 20 MG/ML VIAL IVP PRN (13:22)
[2018-05-29] MEDS ORDERED: fentaNYL 100 MCG/2 ML INJ IVP PRN (14:22)
[2018-05-29] MEDS ORDERED: FLUMAZENIL 0.5 MG/5 ML MDV IVP PRN (14:30)
[2018-05-29] MEDS ORDERED: DEXMEDETOMIDINE HCL 400 MCG in NS 100 ML IV SCH (14:30)
[2018-05-29] MEDS ORDERED: NS 500 ML IV PRN (14:30)
[2018-05-29] MEDS ORDERED: HYDROmorphONE/DILAUDID 1 MG/ML INJ IVP PRN (14:33)
[2018-05-29] MEDS ORDERED: ONDANSETRON 4 MG/2 ML VIAL IVP PRN (14:33)
--- NOTE | 2018-05-29 14:36 | ASMTLACE ---
RICKEY Acuity / Level of Answers: Yes Care: Did the patient have an inpatient admission? Comorbidities - select Answers: Cerebrovascular disease all that apply (CVA, TIA, aneurysms, vasc ular dementia) History of falls Opioid dependence / Chronic pain Other Notes: seizure disorder, Wilks 's cyst and chronic pain down right leg # of Emergency department Answers: 3-4 visits in the last 6 months Social determinants Answers: History of substance abuse (ETOH, street drugs, prescription drugs, etc.) Homelessness (street, [facility]) Lack of community resources and/or lack of social support (no pcp, lives alone, transportation, sravan d) Score: 25 Date Signed: 05/29/2018 02:36 PM Electronically Signed By:Jacqui Fraser RN
[2018-05-29] MEDS ORDERED: D5W 1/2 NS W/ 20 KCl/L 1,000 ML IV SCH (14:45)
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
[2018-05-29] MEDS: THIAMINE HCL 500 MG in NS 100 ML IV SCH (16:06)
--- NOTE | 2018-05-29 17:16 | PDMN ---
Medical Necessity Medical necessity: [facility] M78 Traumatic Brain Injury, Nonsurgical Treatment, 2 days : 57 yo homeless pt found down w/ no recollection of trauma. Brought in via EMT and imaging/assessment reveals L frontal epidural hematoma w/ skull fx and L frontal intraparenchymal hemorrhage, multiple rib fractures and pulmonary contusion. Pt has hx ETOH abuse w/ severe w/d w/ seizures. Admit IP status to SDU for ongoing neuro monitoring q1 hour, repeat scans and tx of the above.
[2018-05-29] MEDS: LORazepam 2 MG/ML INJ IVP PRN ×2 (17:57→22:35)
[2018-05-29] MEDS: FAMOTIDINE 20 MG TAB PO SCH (19:56)
[2018-05-29] MEDS: levETIRAcetam 750 MG in NS 100 ML IV SCH (19:56)
[2018-05-29] MEDS: BACITRACIN ZINC 0.5 OZ OINTTUBE TP SCH (19:56)
--- NOTE | 2018-05-29 20:54 | SOAPPROG ---
SOAP Progress Note Assessment/Plan: Assessment: HOME WITH 57-YEAR-OLD MALE FOUND DOWN SUSTAINING A HEAD INJURY WITH A SKULL FRACTURE AND A SMALL EPIDURAL HEMATOMA ADMIT FOR OBSERVATION NEUROSURGERY CONSULTATION. HE ALSO HAS A RIGHT 3RD AND 4TH RIB FRACTURE AND A POSTERIOR SCALP LACERATION IS SEIZURE AT THE SCENE AND HAS A HISTORY OF SEIZURES AND ALCOHOL PROBLEMS HEENT SMALL POSTERIOR LACERATION, PERRLA, TMS INTACT, OCCLUSION NORMAL NECK SUPPLE NONTENDER FULL RANGE OF MOTION CHEST CLEAR AND SYMMETRIC WITH SOME DISCOMFORT AND OVER THE RIGHT UPPER RIBS COR REGULAR RHYTHM ABDOMEN SOFT NONTENDER EXTREMITIES FULL RANGE OF MOTION FULL PULSES IMPRESSION CHRONIC ALCOHOL ABUSE, HOMELESSNESS, CLOSED HEAD INJURY WITH SKULL FRACTURE AND EPIDURAL HEMATOMA, RIGHT RIB FRACTURES Plan: ADMIT FOR OPS, NEUROSURGERY CONSULTATION, HALIE PROTOCOL 05/29/18 20:51 Objective: Vital Signs Temp Pulse Resp BP Pulse Ox 37.3 C 95 23 H 127/68 H 94 05/29/18 19:00 05/29/18 20:00 05/29/18 20:00 05/29/18 20:00 05/29/18 20:00 05/28/18 05/29/18 05/30/18 05:59 05:59 05:59 Intake Total 1873 Output Total 800 Balance 1073 ICD10 Worksheet Patient Problems: Problems Problem Status Onset Epidural hematoma Acute Intracranial bleed Acute Scalp laceration Acute Seizure Acute Skull fracture Acute CHI (closed head injury) Acute Chronic alcoholism Acute ICB (intracranial bleed) Acute
--- NOTE | 2018-05-29 20:59 | GHP ---
[f rep st] PREOP HISTORY AND PHYSICAL DATE OF ADMISSION: 05/29/2018 The patient is a 57-year-old male who is admitted at this time after being found down sustaining a he ad injury with a possible skull fracture and epidural hematoma. He is presently conscious and alert with a GCS of 15. He has some possibly old compression fractures of T4 and T8 and some acute right r ib fractures of 3 and 4. Has a small acute left frontal epidural. Cervical spine reveals no evidence of any acute fractures or problems. He is admitted at this time for observation, neurosurgery consu ltation and pain control. Risks and options have been fully discussed and he understands and wished to proceed. The patient is ordinarily homeless. ALLERGIES: None. MEDICATIONS: Keppra, but he is not compliant. REVIEW OF SYSTEMS: Complete review of systems is negative except as related to the HPI. He does hav e a history of seizures. He has had a previous brain injury with craniotomy. He does use alcohol ex cessively. He has some chronic right leg pain and a history of a Wilks's cyst. SOCIAL HISTORY: He is an ex smoker, he is a heavy drinker and he is homeless. PRESENT MEDICATIONS: Keppra, an EpiPen kit, prednisone, thiamine, Tylenol. PHYSICAL EXAMINATION: GENERAL: An alert, oriented, 57-year-old male in no acute distress. HEAD AND NECK: Reveals a short posterior occipital laceration and a forehead abrasion with some mild swelling. He is PERRLA. His EOMs are intact. There are no oral lesions and occlusion is normal. NECK: Sup ple, nontender with full range of motion. CHEST: Clear and symmetric. He does have some tenderness in his right posterior upper ribs. CARDIAC: Regular rhythm without murmurs. ABDOMEN: Soft and nont jesús without masses, organomegaly or hernias. BACK: Nontender with no midline step-offs. He does h ave some swelling over his right periscapular area. EXTREMITIES: Reveal full range of motion, full p ulses. NEUROLOGIC: Reveals that he is alert and oriented x3. He has symmetrical motor function and s ensory exam. His cranial nerves are intact. PSYCH: Reveals him to be alert, cooperative and oriente d. IMPRESSION: 1. Closed head injury with epidural and possible skull fracture. 2. Multiple right rib fractures. 3. Alcohol abuse. PLAN: Admit for observation, neurosurgery consultation. Risks and options have been fully discussed and he wishes to proceed. /[id number]/MODL
[2018-05-30 05:54] LABS: INR 1.07 (0.83-1.16); PROTIME(PATIENT) 14.1 SEC (12.0-15.0)
[2018-05-30] MEDS: LORazepam 2 MG/ML INJ IVP PRN (05:59)
[2018-05-30 06:00] LABS: PLATELET COUNT 171 10^3/uL (150-400)
--- NOTE | 2018-05-30 08:18 | TRAUMAPN ---
Trauma Progress Note Assessment/Plan: 57yo M admitted with L frontal epidural hematoma, skull fracture and R rib fractures 3,4. Unknown mechanism of injury, likely fall. H/o seizures, homelessness and ETOH abuse. Repeat CXR this am - stable rib fracture, no pneumothorax. Tertiary survey negative for new injuries. NSG following - stable. Will F/u with Dr. Hong in 4 week. Keppra until outpatient f/u with Neurology per NSG Dispo: transfer to floor if cleared by NSG. Seen with Dr. Gray. S: patient reports mentating clearly this morning. no headache. no chest wall pain. no new injuries. O: General: Lying in bed, comfortable, no acute distress HENT: Normocephalic, frontal scalp abrasion, no gross hearing deficits, mucous membranes moist, pupils equal and round Lungs: Clear to auscultation bilaterally, No increased work of breathing. No chest wall ecchymosis. Cardiac: Regular rate, no peripheral edema Abdomen: Bowel sounds present, soft and non tender Skin: Warm and dry. Old healing abrasions of bilateral knees Psych: Mood and affect normal Neuro: Cranial nerves 2-12 grossly intact. No tremor Objective: Vital Signs Temp Pulse Resp BP Pulse Ox 37.3 C 88 20 122/70 H 94 05/29/18 19:00 05/30/18 08:00 05/30/18 08:00 05/30/18 08:00 05/30/18 08:00 Laboratory Results 05/30/18 05:25 05/30/18 05:25 05/29/18 05/30/18 05/31/18 05:59 05:59 05:59 Intake Total 3569 Output Total 1650 Balance 1919 PT 14.1 SEC (12.0-15.0) 05/30/18 05:25 INR 1.07 (0.83-1.16) 05/30/18 05:25
[2018-05-30] MEDS: THIAMINE HCL 500 MG in NS 100 ML IV SCH (08:36)
[2018-05-30] MEDS: BACITRACIN ZINC 0.5 OZ OINTTUBE TP SCH ×2 (08:38→22:10)
--- NOTE | 2018-05-30 09:20 | PDINTPN ---
Accounting Manager Progress Note Assessment/Plan: Assessment/plan: * Status post fall with trauma * Left frontal epidural hematoma and left frontal intraparenchymal hemorrhage * Multiple rib fractures on the right-Pain well controlled * Pulmonary contusion-stable * Seizure-no further seizures -continue Keppra * History of alcoholic seizures * Alcoholism-watch for DTs * Homelessness * Disposition-okay for floor Subjective: Sitting up in chair eating breakfast. Comfortable. Pain well controlled. Objective: Vital Signs Temp Pulse Resp BP Pulse Ox 37.3 C 88 20 122/70 H 94 05/29/18 19:00 05/30/18 08:00 05/30/18 08:00 05/30/18 08:00 05/30/18 08:00 Laboratory Results 05/30/18 05:25 05/30/18 05:25 05/29/18 05/30/18 05/31/18 05:59 05:59 05:59 Intake Total 3569 Output Total 1650 Balance 1919 PT 14.1 SEC (12.0-15.0) 05/30/18 05:25 INR 1.07 (0.83-1.16) 05/30/18 05:25 Chest [id number] by myself. Right 3rd rib fractures present, but unchanged. Otherwise clear. - Time Spent With Patient Time Spent With Patient: 35 min of time spent with patient, over 1/2 involved with coordination of care counseling. Case discussed with nursing Physical Exam - Physical Exam General Appearance: alert, no apparent distress EENT: PERRL/EOMI Neck: non-tender, full range of motion, supple, normal inspection Respiratory: chest non-tender, lungs clear, normal breath sounds Cardiac/Chest: normal peripheral pulses, regular rate, rhythm Peripheral Pulses: 2+: carotid (R), carotid (L), femoral (R), femoral (L), dorsalis-pedis (R), dorsalis-pedis (L) Abdomen: normal bowel sounds, non-tender, soft Male Genitalia: deferred Rectal: deferred Skin: normal color, warm/dry Extremities: normal range of motion, non-tender, normal inspection, normal capillary refill Neuro/Psych: alert, normal mood/affect, oriented x 3 ICD10 Worksheet Patient Problems: Problems Problem Status Onset Epidural hematoma Acute Intracranial bleed Acute Scalp laceration Acute Seizure Acute Skull fracture Acute CHI (closed head injury) Acute Chronic alcoholism Acute ICB (intracranial bleed) Acute
--- NOTE | 2018-05-30 09:29 | NEUSURGPN ---
Assessment/Plan: 57 yo male with left frontal epidural hematoma. CT C-spine: no fracture Repeat head CT: stable - neuro stable - no further repeat head CT, unless clinically declines - PT/OT - stable from neurosurgery standpoint for discharge - will sign off, FU in 4 weeks as outpatient with Dr. Hong Discussed with trauma. Subjective: No headache, nausea, vomiting. Objective: Awake. Alert. PERRL. EOMI Facial expression symmetrical Tongue in midline Speech fluent Muscle strength full at 5/5 - Physician Discussed Patient with Dr.: Hong Neurosurgery Physical Exam - Vitals, I&O, Labs I and O 05/29/18 05/30/18 05/31/18 05:59 05:59 05:59 Intake Total 3569 Output Total 1650 Balance 1919 Intake: Oral (ml) 950 IV Intake (ml) 1096 IV Infused (ml) 1523 D5W 1/2 NS W/ 20 KCl/L 1, 423 000 ml @ 100 mls/hr IV CONT JANE Rx#:[id number] Output: Urine (ml) 1650 Urinal 1650 Vital Signs Temp Pulse Resp BP Pulse Ox 37.3 C 88 20 122/70 H 94 05/29/18 19:00 05/30/18 08:00 05/30/18 08:00 05/30/18 08:00 05/30/18 08:00 Laboratory Results 05/30/18 05:25 05/30/18 05:25 ICD10 Worksheet Patient Problems: Problems Problem Status Onset Epidural hematoma Acute Intracranial bleed Acute Scalp laceration Acute Seizure Acute Skull fracture Acute CHI (closed head injury) Acute Chronic alcoholism Acute ICB (intracranial bleed) Acute
[2018-05-30] MEDS: FAMOTIDINE 20 MG TAB PO SCH ×2 (09:40→22:09)
[2018-05-30] MEDS: MULTIVITAMINS 1 EACH TAB PO SCH (09:41)
[2018-05-30] MEDS: levETIRAcetam 750 MG in NS 100 ML IV SCH (09:41)
--- NOTE | 2018-05-30 15:40 | ASMTCMCOM ---
CM Note CM Note Notes: Pt is a 57 year old male with history of polysubstance abuse and homelessness. Pt reports that he wants to go back to the streets. PT recommending SNF at this time. Pt is not interested. CM to follow as pt progresses, goals of treatment are to get stronger so he can return to streets. Pt denies wanting to stop using, denied information. Pt reports he had a ordnance corps officer in the past named Lorraine Crabtree who was helpful; CM attempted to contact her and she is not listed as a ordnance corps officer in [facility]. CM to follow to help identify other collaterals in the area. Dr. Rangel reported she has access to waterproof boots that pt could benefit from at discharge. Pt will also need neuro f/u appt & [facility] app[facility]. CM to follow. Plan: TBD Date Signed: 05/30/2018 03:39 PM Electronically Signed By:NOHEMY Llanes
[2018-05-30] MEDS: levETIRAcetam 500 MG TAB PO SCH (22:07)
[2018-05-31 04:52] LABS: PLATELET COUNT 190 10^3/uL (150-400)
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
[2018-05-31] MEDS: MULTIVITAMINS 1 EACH TAB PO SCH (09:38)
[2018-05-31] MEDS: levETIRAcetam 500 MG TAB PO SCH ×2 (09:38→20:12)
[2018-05-31] MEDS: FAMOTIDINE 20 MG TAB PO SCH ×2 (09:38→20:13)
[2018-05-31] MEDS: BACITRACIN ZINC 0.5 OZ OINTTUBE TP SCH ×2 (09:39→20:13)
[2018-05-31] MEDS: THIAMINE HCL 500 MG in NS 100 ML IV SCH (11:09)
[2018-06-01] MEDS: levETIRAcetam 500 MG TAB PO SCH ×2 (09:55→21:51)
[2018-06-01] MEDS: THIAMINE HCL 100 MG TAB PO SCH (09:55)
[2018-06-01] MEDS: FAMOTIDINE 20 MG TAB PO SCH ×2 (09:55→21:51)
[2018-06-01] MEDS: MULTIVITAMINS 1 EACH TAB PO SCH (09:55)
[2018-06-01] MEDS: BACITRACIN ZINC 0.5 OZ OINTTUBE TP SCH ×2 (10:07→21:51)
--- NOTE | 2018-06-01 10:13 | SOAPPROG ---
SOAP Progress Note Assessment/Plan: Assessment/plan: 57 y/o M admitted with unknown mechanism of injury, likely fall L frontal hematoma. NS has signed off. F/u with Dr. Hong in 4 weeks. R Rib fractures 3,4: Stable. No SOB. History of seizures. Continue Keppra until he sees neurology as outpatient. Homelessness: Pt has been offered SNF placement, however he refuses. States he wants to go back to streets despite below 0 temps. Dispo: continue inpt status until weather warms up. Will discuss further with CM. S: No complaints. Denies pain, SOB. O: Alert Afebrile, VSS Normocephalic, atraumatic, PERRLA Trachea midline RRR CTAB, no increased WOB Abdomen: soft, nontender, nondistended, normoactive BS Neuro: CN 2-12 grossly intact MAEx4 06/01/18 10:07 Objective: Vital Signs Temp Pulse Resp BP Pulse Ox 36.6 C 81 12 128/69 H 96 06/01/18 07:45 06/01/18 07:45 06/01/18 07:45 06/01/18 07:45 06/01/18 07:45 Laboratory Results 05/31/18 04:32 05/31/18 04:32 05/31/18 06/01/18 06/02/18 05:59 05:59 05:59 Intake Total 500 500 Output Total 800 Balance -300 500 PT 14.1 SEC (12.0-15.0) 05/30/18 05:25 INR 1.07 (0.83-1.16) 05/30/18 05:25 ICD10 Worksheet Patient Problems: Problems Problem Status Onset Epidural hematoma Acute Intracranial bleed Acute Scalp laceration Acute Seizure Acute Skull fracture Acute CHI (closed head injury) Acute Chronic alcoholism Acute ICB (intracranial bleed) Acute
--- NOTE | 2018-06-01 15:51 | ASMTLACE ---
RICKEY Length of stay for Answers: 4-6 days current admission Acuity / Level of Answers: Yes Care: Did the patient have an inpatient admission? Comorbidities - select Answers: Cerebrovascular disease all that apply (CVA, TIA, aneurysms, vasc ular dementia) History of falls Opioid dependence / Chronic pain Other Notes: seizure disorder, Wilks 's cyst and chronic pain down right leg # of Emergency department Answers: 3-4 visits in the last 6 months Social determinants Answers: History of substance abuse (ETOH, street drugs, prescription drugs, etc.) Homelessness (street, longterm) Lack of community resources and/or lack of social support (no pcp, lives alone, transportation, sravan d) Score: 29 Date Signed: 06/01/2018 03:50 PM Electronically Signed By:GUERDA Julien
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
[2018-06-02 07:59] VITALS: BP 106/68
--- NOTE | 2018-06-02 08:07 | TRAUMAPN ---
Trauma Progress Note Assessment/Plan: 57yo M admitted with L frontal epidural hematoma, skull fracture and R rib fractures 3,4. Unknown mechanism of injury, likely fall. H/o seizures, homelessness and ETOH abuse. Will F/u with Dr. Hong in 4 week. Yonas until outpatient f/u with Neurology per NSG Dispo: DC to fdc. FU Dr. Velez [address] Gray. S: patient reports feeling MUCH better. no headache. no chest wall pain. O: General: Sitting at edge of bed, comfortable, no acute distress HENT: Normocephalic, frontal scalp abrasion, no gross hearing deficits, mucous membranes moist, pupils equal and round Lungs: CTAB, No increased work of breathing. No chest wall ecchymosis. Cardiac: Regular rate, no peripheral edema Abdomen: soft and non tender Skin: Warm and dry. Post scalp abrasion, stitches in place no january Psych: Mood and affect normal Neuro: grossly intact Objective: Vital Signs Temp Pulse Resp BP Pulse Ox 36.4 C 85 16 106/68 97 06/02/18 07:57 06/02/18 07:57 06/02/18 07:57 06/02/18 07:57 06/02/18 07:57 Laboratory Results 05/31/18 04:32 05/31/18 04:32 06/01/18 06/02/18 06/03/18 05:59 05:59 05:59 Intake Total 500 600 Balance 500 600 PT 14.1 SEC (12.0-15.0) 05/30/18 05:25 INR 1.07 (0.83-1.16) 05/30/18 05:25
[2018-06-02] MEDS: BACITRACIN ZINC 0.5 OZ OINTTUBE TP SCH (08:17)
[2018-06-02] MEDS: levETIRAcetam 500 MG TAB PO SCH (08:18)
[2018-06-02] MEDS: MULTIVITAMINS 1 EACH TAB PO SCH (08:18)
[2018-06-02] MEDS: FAMOTIDINE 20 MG TAB PO SCH (08:18)
[2018-06-02] MEDS: THIAMINE HCL 100 MG TAB PO SCH (08:18)
--- NOTE | 2018-06-02 11:56 | GDS ---
[f rep st] DISCHARGE SUMMARY ADMITTING DIAGNOSIS: Trauma, suspect fall. SECONDARY DIAGNOSES: 1. Left frontal epidural hematoma. 2. Left frontal intraparenchymal hemorrhage. 3. Frontal skull fracture. 4. Right rib fractures 3 and 4. 5. Pulmonary contusion. 6. History of seizure disorder. 7. Alcohol abuse. 8. Homelessness. 9. Right Wilks cyst. 10. Posterior scalp laceration. REASON FOR ADMISSION: A 57-year-old man who was found down with altered mental status. He was broug ht to the emergency room for further evaluation, unknown mechanism but suspect fall. HOSPITAL COURSE: In the emergency room, full workup, as well as imaging workup, showed left frontal epidural hematoma with associated skull fracture, right posterior rib fractures 3 and 4 with pulmonar y contusion. He also had a posterior scalp laceration which was primarily repaired with 4-0 Vicryl s uture. His C-spine was cleared by imaging. He was admitted to the ICU for frequent neuro checks, evaluated by Neurosurgery who recommended a [facility] head CT which was stable. He was started on Keppra for seizure control. A followup chest x-ray on hospital day #2 was stable with no evidence of pneumothorax. By hospital day #3, he was ready for discharge but was kept in-house due to unsafe discharge conditions as the patient is homeless and th ere were some subfreezing temperatures. On 06/02/2018, the patient's pain was well controlled with o ral pain medication. He was tolerating a regular diet. He was working with physical and occupationa l therapy and was ready for discharge. He was kept on CIWA protocol through his hospital stay. CONDITION: Being discharged to a prison in stable condition. Pain is controlled with oral pain med ication. He is tolerating a regular diet. He is ambulating independently. DISCHARGE MEDICATIONS: He was instructed to resume home medications. Please see EMR for further det ail. He was sent home with prescription for Keppra. DISCHARGE INSTRUCTIONS/FOLLOWUP: He will follow up with Neurosurgery, Dr. Hong, in 4 weeks. He wi ll follow up with Neurology and continue Keppra until cleared by Neurology. He will follow up with Luis Manuel Velez or Trauma Service in 1 week for suture removal of his posterior scalp. Call in the meantime with worsening symptoms, questions, or concerns. He will follow up with his primary care provider a t [facility]. /[id number]/MODL
--- NOTE | 2018-06-02 15:38 | ASMTDCNOTE ---
Case Management Discharge Discharge Order Complete? Answers: Yes Patient to Obtain Answers: Independently Medications Transportation Arranged Answers: Bus Tokens Discharge Comments Notes: CM met with patient prior to discharge. Patient requested bus pass, CM offered [employer] ride, patient declined as he waited for cab yesterday without result. Patient states he will follow up with [facility], patient has walk in info and CM wrote info about connecting to [facility] CM via [employer], [employer], and [employer] phone service. Patient given large flannel sweater as states he generally lives on the streets. CM reserved [facility] bed for tonight, patient states he will go but doesn't usually go there. CM available to support if any additional CM needs arise. Date Signed: 06/02/2018 03:38 PM Electronically Signed By:Bertha Yancey
== END 2018-06-02 14:45 | disposition home or self-care (01) | DRG 930 ==
LOC: EDUNIT# → F2N 12:38 → F3N 05-30 10:24
PROVIDERS: ADMIT Surgery; ATTEND Surgery
PROC: 0HQ0XZZ Repair Scalp Skin, External Approach (ICD-10-PCS; principal; 2018-05-30)
DX: S06.4X0A Epidural hemorrhage without loss of consciousness, initial encounter (principal); S27.329A Contusion of lung, unspecified, initial encounter; S22.41XA Multiple fractures of ribs, right side, initial encounter for closed fracture; S06.2X0A Diffuse traumatic brain injury without loss of consciousness, initial encounter; S02.0XXA Fracture of vault of skull, initial encounter for closed fracture; S01.01XA Laceration without foreign body of scalp, initial encounter; W19.XXXA Unspecified fall, initial encounter; Y92.488 Other paved roadways as the place of occurrence of the external cause; G40.909 Epilepsy, unspecified, not intractable, without status epilepticus; F10.20 Alcohol dependence, uncomplicated; Z59.0 Homelessness; M71.21 Synovial cyst of popliteal space [Baker], right knee
CPT/HCPCS: 92523-GN; 96365; 96366; 97112-GP; 97116-GP; 97161-GP; 97166-GO; 97530-GO; 97535-GO; G0480; J0360; J1953; J2060; J3010; J3411; Q9967

== ENCOUNTER 2018-06-27 14:59 | Emergency (ER) | payer MEDICAID ==
--- NOTE | 2018-06-27 15:45 | EDPHY ---
H & P Stated Complaint: pt says feeling weird, has sense he may have sz - hx of same Time Seen by Provider: 06/27/18 15:18 HPI/ROS: CHIEF COMPLAINT: Feels weird HISTORY OF PRESENT ILLNESS: A 57-year-old male with alcoholism and prior alcohol withdrawal seizure presents with an odd sensation. He has never had this sensation before, the feels like he might have a seizure. Unable to describe the sensation. The sensation has resolved. History of alcohol withdrawal seizures. Last alcoholic beverage was this morning. He takes Keppra twice daily and took his usual dose this morning. REVIEW OF SYSTEMS: complete 10 point ROS reviewed and is negative except for the noted elements in the HPI - Medical/Surgical History Hx Asthma: No Hx Chronic Respiratory Disease: No Hx Diabetes: No Hx Cardiac Disease: No Hx Renal Disease: No Hx Cirrhosis: No Hx Alcoholism: Yes Hx HIV/AIDS: No Hx Splenectomy or Spleen Trauma: No Other PMH: ICH/skull fx 2018, Seizure disorder, post traumatic, Alcoholism, 2019 admit for SDH after fall - Social History Smoking Status: Former smoker Alcohol Use: Heavy Additional Social History: Homeless - Physical Exam Exam: General Appearance: Alert, pleasant Eyes: Pupils equal and round, no conjunctival pallor ENT, Mouth: Mucous membranes moist Neck: Normal inspection Respiratory: Lungs are clear to auscultation Cardiovascular: Regular rate and rhythm Gastrointestinal: Abdomen is soft and nontender Neurological: Alert, oriented x3, cranial nerves II through XII intact, motor 5 /5, sensory intact to light touch Skin: Warm and dry Extremities: Nontender, no pedal edema Psychiatric: Mood and affect normal Constitutional: Initial Vital Signs Temperature (C) 36.5 C 06/27/18 15:03 Heart Rate 90 06/27/18 15:03 Respiratory Rate 18 06/27/18 15:03 Blood Pressure 127/73 H 06/27/18 15:03 O2 Sat (%) 97 06/27/18 15:03 O2 Delivery Mode Room Air Allergies/Adverse Reactions: No Known Allergies Allergy (Verified 06/27/18 15:07) Home Medications: Medication Instructions Recorded levETIRAcetam [Keppra 500 mg (*)] 750 mg PO BID #60 tab 06/02/18 Medical Decision Making ED Course/Re-evaluation: This patient presents with an aura, now resolved. Well-appearing and neuro exam normal. No evidence of alcohol withdrawal on exam, with normal vital signs and no tremulousness or vomiting. Plans to continue drinking alcohol. Warning signs discussed. Departure - Departure Disposition: Home, Routine, Self-Care Clinical Impression: Seizure aura Condition: Good Instructions: Alcohol Withdrawal (ED) Additional Instructions: The [facility] has walk-in appointments for the homeless at the following days/locations. No appointment is needed. Tuesday 8-10 am @ [facility] 11 AM-1 PM @ [facility] Tuesday 8-10:30 AM @ [facility] Tuesday 8-10 AM @ [facility] 2-4 PM @ [facility] Tuesday 8-10 AM @ [facility] Referrals: [facility],. [Clinic] - As per Instructions
[2018-06-27 16:21] VITALS: BP 114/75
== END 2018-06-27 16:21 | disposition home or self-care (01) ==
LOC: EDUNIT#
DX: R29.818 Other symptoms and signs involving the nervous system (principal); G40.909 Epilepsy, unspecified, not intractable, without status epilepticus; F10.20 Alcohol dependence, uncomplicated; Z87.891 Personal history of nicotine dependence; Z59.0 Homelessness

== ENCOUNTER 2018-08-11 17:48 | Emergency (ER) | payer MEDICAID ==
[2018-08-11 18:29] LABS: PLATELET COUNT 189 10^3/uL (150-400)
--- NOTE | 2018-08-11 18:30 | EDPHY ---
General Time Seen by Provider: 08/11/18 18:04 Narrative: CLINICAL IMPRESSION: Mild alcohol withdrawal ASSESSMENT/PLAN: 57-year-old male presents to the emergency department with a chief complaint of "I feel weird". [facility], took multiple buses around [facility], stated that he was feeling weird and was sent to the emergency department by EMS from the penitentiary after he returned there to ask about what medications he was given during his stay. Patient is alert, oriented, appropriate. He has a nonfocal neurological exam, no tremors, nausea or vomiting. Initially ambulates with a slow but steady gait which improved after period of observation and IV fluids. He has no evidence of leukocytosis, electrolyte imbalance, dehydration. Renal insufficiency metabolic disturbance or severe dehydration. He was given an evening dose of Keppra which he reports taking twice daily and does not have a prescription. I wrote him a new prescription. I provided walk-in clinic hours for [facility]. He prefers to sleep outside [facility]. He was given a bus pass back to the [facility] where his outdoor fci is. He admits that he will likely continue drinking alcohol and is not interested in detox. He road tested with a steady gait and no ataxia. Warning signs return to ED sooner outlined and discharge DIFFERENTIAL DX: Differential diagnosis for this patient includes but not limited to alcohol intoxication, alcohol abuse, alcohol withdrawal, other substance abuse or withdrawal, toxidrome or medication overdose, CVA, head trauma, hyponatremia, hypoglycemia or other electrolyte abnormality. ED PROCEDURES: See lab and/or imaging results below ED COURSE: Seen and assessed by myself on arrival, discussed with EMS. Patient is alert, oriented, answering all questions appropriately, has no physical complaints, was seen walking from EMS gurney to the bed, slowly but able to walk with steady gait. Plan to check labs, provide with Keppra prescription and PCP follow-up. 7:00 p.m.: Patient reassessed, labs without significant abnormality. Does not appear to be in withdrawal, resting comfortably in the bed. Vital signs stable. States he is feeling much better. Road tested with steady gait. Offered to give him a dose of Keppra tonight which he is very appreciative of. States he does not have a prescription. I am going to put supply him with a new prescription. He will plan to follow up at [facility]. Discussed with the ED charge nurse. Will plan to give patient a bus pass back to his outdoor sleeping fci area near [place] in [facility]. Patient admits that he will likely began drinking again. He is not interested in resources. No signs of withdrawal or indication for detox at the [facility] CHIEF COMPLAINT: I feel weird HPI: 57-year-old male with a history of alcohol abuse presents to the emergency department by EMS with vague complaints of "I feel weird". Patient reports he was in penitentiary, arrested 2 days ago on outstanding warrants. He was discharged from penitentiary this morning with a bus pass. He reports after leaving the penitentiary he felt unsteady on his feet in the parking lot and tripped on a curb striking his knees. He did not hit his head. He walked to the bus stop, took the bus down to [address] in [place] and was going to the police station to get his backpack. He states the police were "too busy to give me my backpack". He then took the bus back to the penitentiary to ask them about medication he was given because he was feeling so weird. Once back at the penitentiary, apparently police were called and then EMS was called. Patient has no physical complaints of pain. He states that his legs just felt weak. He believes he was given Keppra in the penitentiary and states takes Keppra daily for seizures. He does not report having a seizure. He was also given Librium in the penitentiary. His last drink was 2 days ago. He will likely continue drinking. He is homeless. He did not fall to his head at any time today and denies headache, nausea, vomiting, dizziness or vertigo. He reports no knee pain from his fall earlier. He received a liter of fluid from EMS and states on arrival that he is feeling better PAST MEDICAL HISTORY: Alcohol abuse, seizure disorder See triage summary and nurse notes for addition applicable history Pertinent Past Surgical History: None reported Family History: Noncontributory Social History: Homeless, abuses alcohol REVIEW OF SYSTEMS: A full 10 point review of systems was negative except for those mentioned in HPI. PHYSICAL EXAM: General Appearance: Alert, oriented, appropriate, cooperative, NAD, well hydrated, non-toxic appearing, VSS, no hypoxia. HEENT: TMs are clear bilaterally no perforation or FB, no injection, no evidence of serous or mucopurulent otitis. No hemotympanum or Lewis sign. No scalp hematoma or contusion. Oropharynx clear is no erythema or exudates, no tonsillar hypertrophy or asymmetry. Dentition without abnormality. Eyes: PERRLA, no acute vision change, nystagmus, swelling, discharge, pain or photosensitivity. Conjunctiva pink, no pallor or injection Neck: Supple, nontender, no lymphadenopathy, no midline pain, FROM, no meningismus. Respiratory: There are no retractions, lungs are clear to auscultation. No chest wall pain or rib pain. Cardiac: Regular rate and rhythm, no murmurs or gallops. Gastrointestinal: Abdomen is soft, nontender, bowel sounds normal, no masses/ hernia, no rigidity, guarding or focal peritoneal findings. Skin: Warm, dry, no rashes, no nodules on palpation. Neuro: NIH score of 0. No tremors. [employer] strength equal bilaterally. Normal gait although slow but with no ataxia. MEDICAL DECISION MAKING: Patient was seen independently. Secondary supervising physician at time of evaluation was: Dr. Gambino. Diagnosis: Mild alcohol withdrawal . New, requires workup Summary: See Assessment and Plan for summary of ED visit Clinical lab tests: ordered / reviewed. Decision to obtain medical records or history from someone other than the patient: EMS Review / Summarize previous medical records: Reviewed past hospital records Patient Progress: Stable for discharge. - History Smoking Status: Former smoker - Objective Vital Signs: Initial Vital Signs Temperature (C) 36.9 C 08/11/18 18:21 Heart Rate 87 08/11/18 18:21 Respiratory Rate 16 08/11/18 18:21 Blood Pressure 125/87 H 08/11/18 18:21 O2 Sat (%) 98 08/11/18 18:21 O2 Delivery Mode Room Air Allergies/Adverse Reactions: No Known Allergies Allergy (Verified 06/27/18 15:07) Home Medications: Medication Instructions Recorded levETIRAcetam [Keppra 500 mg (*)] 750 mg PO BID #60 tab 06/02/18 levETIRAcetam [Keppra Xr] 750 mg PO BID #20 tab.sr.24h 08/11/18 Laboratory Results: Laboratory Results 08/11/18 18:25 08/11/18 18:25 08/11/18 08/11/18 18:25 18:25 WBC 5.29 10^3/uL 10^3/uL (3.80-9.50) RBC 4.14 10^6/uL L 10^6/uL (4.40-6.38) Hgb 13.2 g/dL L g/dL (13.7-17.5) Hct 41.4 % % (40.0-51.0) MCV 100.0 fL H fL (81.5-99.8) MCH 31.9 pg pg (27.9-34.1) MCHC 31.9 g/dL L g/dL (32.4-36.7) RDW 12.1 % % (11.5-15.2) Plt Count 189 10^3/uL 10^3/uL (150-400) MPV 10.4 fL fL (8.7-11.7) Neut % (Auto) 55.8 % % (39.3-74.2) Lymph % (Auto) 28.4 % % (15.0-45.0) Bullock % (Auto) 11.3 % % (4.5-13.0) Eos % (Auto) 3.4 % % (0.6-7.6) Baso % (Auto) 0.9 % % (0.3-1.7) Nucleat RBC Rel Count 0.0 % % (0.0-0.2) Absolute Neuts (auto) 2.95 10^3/uL 10^3/uL (1.70-6.50) Absolute Lymphs (auto) 1.50 10^3/uL 10^3/uL (1.00-3.00) Absolute Monos (auto) 0.60 10^3/uL 10^3/uL (0.30-0.80) Absolute Eos (auto) 0.18 10^3/uL 10^3/uL (0.03-0.40) Absolute Basos (auto) 0.05 10^3/uL 10^3/uL (0.02-0.10) Absolute Nucleated RBC 0.00 10^3/uL 10^3/uL (0-0.01) Immature Gran % 0.2 % % (0.0-1.1) Immature Gran # 0.01 10^3/uL 10^3/uL (0.00-0.10) Sodium 141 mEq/L mEq/L (135-145) Potassium 4.5 mEq/L mEq/L (3.5-5.2) Chloride 104 mEq/L mEq/L (97-110) Carbon Dioxide 27 mEq/l mEq/l (22-31) Anion Gap 10 mEq/L mEq/L (6-14) BUN 9 mg/dL mg/dL (7-23) Creatinine 1.0 mg/dL mg/dL (0.7-1.3) Estimated GFR > 60 Glucose 92 mg/dL mg/dL (70-100) Calcium 9.8 mg/dL mg/dL (8.5-10.4) Departure - Departure Disposition: Home, Routine, Self-Care Clinical Impression: Alcohol withdrawal Qualifiers: Complication of substance-induced condition: uncomplicated Qualified Code(s): F10.230 - Alcohol dependence with withdrawal, uncomplicated Condition: Fair Instructions: Alcohol Withdrawal (ED) Additional Instructions: DISCHARGE INSTRUCTIONS FROM YOUR DOCTOR Thank you for visiting our emergency department today. You were treated by a physician special education assistant today and your case was reviewed with our ED Attending physician. Please keep in mind that discharge from the emergency department does not mean that there is nothing wrong - it simply means that we have not identified an emergency condition that requires further evaluation or treatment in the hospital. You should always plan to follow up with primary care for re- evaluation of your condition in the next 2-3 days. If you have been referred to a specialist, please call as soon as possible (today or tomorrow) to schedule your follow up appointment at the appropriate time. LAB EVALUATION IN THE EMERGENCY DEPARTMENT WAS REASSURING. VITAL SIGNS ARE STABLE. A DOSE OF KEPPRA WAS PROVIDED TONIGHT. A PRESCRIPTION WAS GIVEN TO FILL TOMORROW. THE [facility] HAS WALK-IN APPOINTMENTS FOR THE HOMELESS AT THE FOLLOWING DAYS AND LOCATIONS. NO APPOINTMENT IS NEEDED. TUESDAY 8-10AM AT [facility] AND 11AM-1PM AT THE [facility] TUESDAY 8-10AM AT [facility] TUESDAY 8-10AM AT [facility] TUESDAY 2-4PM AT [facility] TUESDAY 8-10AM AT [facility] RETURN TO THE EMERGENCY DEPARTMENT FOR INCREASED WEAKNESS, INABILITY TO WALK, SEVERE HEADACHE, CHEST PAIN OR SHORTNESS OF BREATH, OR ANY OTHER CONCERNS. People present with illnesses and injuries in different ways, and it is always possible that we have missed something. You may always return for re-evaluation if symptoms worsen or if they are not improving or if you develop new/different symptoms. Again, thank you for choosing our emergency department. We hope that you feel better. Referrals: NONE *PRIMARY CARE P,. [Primary Care Provider] - As per Instructions [facility],. [Clinic] - As per Instructions Prescriptions: levETIRAcetam [Keppra Xr] 750 mg PO BID #20 tab.sr.24h
[2018-08-11] MEDS ORDERED: levETIRAcetam 500 MG TAB PO ONE (19:14)
[2018-08-11 19:21] VITALS: BP 118/99
== END 2018-08-11 19:26 | disposition home or self-care (01) ==
LOC: EDUNIT#
DX: F10.230 Alcohol dependence with withdrawal, uncomplicated (principal)

== ENCOUNTER 2018-08-12 13:53 | Emergency (ER) | payer MEDICAID ==
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
[2018-08-12 14:16] LABS: PLATELET COUNT 164 10^3/uL (150-400)
--- NOTE | 2018-08-12 15:51 | CPEKG ---
Test Reason : OPEN Blood Pressure : / mmHG Vent. Rate : 089 BPM Atrial Rate : 089 BPM P-R Int : 175 ms QRS Dur : 076 ms QT Int : 375 ms P-R-T Axes : -02 036 017 degrees QTc Int : 457 ms Sinus rhythm Confirmed by Cameron Miguel ([id number]) on 08/12/2018 3:50:22 PM Referred By: Cameron Miguel Confirmed By:Cameron Miguel
[2018-08-12] MEDS ORDERED: ACETAMINOPHEN 325 MG TAB PO ONE (15:57)
[2018-08-12] MEDS ORDERED: IBUPROFEN 600 MG TAB PO ONE (15:57)
[2018-08-12 16:08] VITALS: BP 141/86
== END 2018-08-12 16:26 | disposition home or self-care (01) ==
LOC: EDBD → EDUNIT#
PROC: 08QNXZZ Repair Right Upper Eyelid, External Approach (ICD-10-PCS; principal; 2018-08-12)
DX: S22.41XA Multiple fractures of ribs, right side, initial encounter for closed fracture (principal); S42.031A Displaced fracture of lateral end of right clavicle, initial encounter for closed fracture; S01.111A Laceration without foreign body of right eyelid and periocular area, initial encounter; S80.812A Abrasion, left lower leg, initial encounter; S00.511A Abrasion of lip, initial encounter; M50.321 Other cervical disc degeneration at C4-C5 level; W19.XXXA Unspecified fall, initial encounter; Y92.488 Other paved roadways as the place of occurrence of the external cause
CPT/HCPCS: A4565; G0480